=== PATIENT | female | born 2000 | race Caucasian/White ===

== ENCOUNTER 2020-12-07 19:29 | Emergency (ER) | payer OTHER, BC ==
[~2020-12-07] VITALS: Ht 173 cm; Wt 56.0 kg
[~2020-12-07 19:29] MED LIST: IBUP-1773 PO
[2020-12-07] MEDS ORDERED: HYDROcodone/APAP 7.5 MG/325 MG (LORTAB, LORCET PLUS) TABLET PO ONE (20:15)
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
[2020-12-07] MEDS ORDERED: fentaNYL INJ 100 MCG/2 ML AMP IM STA (21:02)
--- NOTE | 2020-12-07 21:02 | Diagnostic Imaging Report ---
EXAM: FOOT, RIGHT, 3 VIEW INDICATION: Right foot pain. COMPARISON: None. FINDINGS/ IMPRESSION: Mildly displaced fracture of the right calcaneus. No other fracture is identified. Marked soft tissue swelling about the right ankle. Dictated by: Dictated on workstation # [id number]
--- NOTE | 2020-12-07 21:03 | Diagnostic Imaging Report ---
EXAM: ANKLE, RIGHT, 3 VIEWS INDICATION: Right ankle pain. COMPARISON: None. FINDINGS/ IMPRESSION: Mildly displaced fracture through the body of the calcaneus. Marked soft tissue swelling about the right ankle. The distal right tibia and fibula appear to be intact. Dictated by: Dictated on workstation # [id number]
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
[2020-12-07] MEDS ORDERED: HYDR-3817 PO (21:35)
[2020-12-07 21:41] VITALS: BP 112/97
== END 2020-12-07 21:45 | disposition home or self-care (01) ==
LOC: EDUNIT# 19:29 → ER 19:31
DX: S92.011A Displaced fracture of body of right calcaneus, initial encounter for closed fracture (principal); S00.83XA Contusion of other part of head, initial encounter; F17.290 Nicotine dependence, other tobacco product, uncomplicated; V43.52XA Car driver injured in collision with other type car in traffic accident, initial encounter; Y92.410 Unspecified street and highway as the place of occurrence of the external cause
CPT/HCPCS: 29515; 70450; 73610; 73630